=== PATIENT | male | born 1965 | race Caucasian/White ===

== ENCOUNTER 2019-02-08 15:12 | Emergency (ER) | payer OTHER ==
--- NOTE | 2019-02-08 16:09 | ED ---
General Adult HPI - General Stated complaint: L leg swelling Time Seen by Provider: 02/08/19 15:28 Source: patient, EMS, RN notes reviewed Mode of arrival: EMS Limitations: no limitations - History of Present Illness Initial comments: 53-year-old male presents to the emergency department for a chief complaint of left calf pain. Patient states he was using the elliptical history which she has never done before. States that today he started to notice some left calf pain. States it is worse with walking. Denies any back or other leg pain. Denies any leg swelling. Denies any chest pain or shortness of breath. Patient is currently staying at [facility] for IV drug abuse including heroin.Patient has no other complaints at this time including shortness of breath, chest pain, abdominal pain, nausea or vomiting, headache, or visual changes. Review of Systems ROS Statement: Those systems with pertinent positive or pertinent negative responses have been documented in the HPI. ROS Other: All systems not noted in ROS Statement are negative. General Exam General appearance: alert, in no apparent distress Head exam: Present: atraumatic, normocephalic, normal inspection Eye exam: Present: normal appearance, PERRL, EOMI. Absent: scleral icterus, conjunctival injection, periorbital swelling ENT exam: Present: normal exam, mucous membranes moist Neck exam: Present: normal inspection, full ROM. Absent: tenderness, meningismus, lymphadenopathy Respiratory exam: Present: normal lung sounds bilaterally. Absent: respiratory distress, wheezes, rales, rhonchi, stridor Cardiovascular Exam: Present: regular rate, normal rhythm, normal heart sounds. Absent: systolic murmur, diastolic murmur, rubs, gallop, clicks Extremities exam: Present: full ROM (Full range motion of the left lower sternal including ankle knee and hip. No evidence of infection or erythema.), tenderness (Tenderness noted to the left calf and posterior left knee.), normal capillary refill (Capillary refill less than 2 seconds, DP pulse 2+ left lower extremity and equal bilaterally), calf tenderness (patient does have left calf tenderness with a positive Homans sign. No sign of Edema. No ecchymosis. No erythema or increased warmth.), other (Sensation intact in the left lower extremity.). Absent: pedal edema (No edema present of the bilateral lower extremities. No pitting present.), joint swelling (No edema of ankle or knee joint.) Course Vital Signs 02/08/19 16:03 Temperature 98.0 F Pulse Rate 66 Respiratory 16 Rate Blood Pressure 129/72 O2 Sat by Pulse 98 Oximetry Medical Decision Making - Medical Decision Making 53-year-old male resents to the emergency department for a chief complaint of left calf pain times one day. Patient tried the elliptical for the first time yesterday and then started to have left calf pain today. Presents from [facility] for IV drug abuse however no fevers or chills. No back pain. No erythema or edema noted of the lower extremities. Neurovascular status intact in the left lower extremity and equal bilaterally. Ultrasound of the left leg is negative for DVT. Patient likely has a muscle strain of the left calf. At this time patient will be discharged home with Motrin and Tylenol for pain. Disposition Clinical Impression: Strain of calf muscle, Pain of left calf Disposition: HOME SELF-CARE Condition: Good Instructions (If sedation given, give patient instructions): Muscle Strain (ED) Additional Instructions: Please take Motrin and Tylenol for pain. Please follow-up with primary care in 1-2 days. Return here to the emergency department if you have any worsening symptoms or develop any swelling in your legs. Is patient prescribed a controlled substance at d/c from ED?: No Referrals: Wendy Monterroso MD [STAFF PHYSICIAN] - 1-2 days Time of Disposition: 17:04
[2019-02-08 16:13] VITALS: BP 129/72; PULSE 66; RESP 16; TEMP 98
--- NOTE | 2019-02-08 16:36 | US ---
EXAMINATION TYPE: US venous doppler duplex LE LT DATE OF EXAM: 02/08/2019 4:28 PM COMPARISON: NONE CLINICAL HISTORY: Pain. Left calf pain today after working out on elliptical machine yesterday SIDE PERFORMED: Left TECHNIQUE: The lower extremity deep venous system is examined utilizing real time linear array sonog brown with graded compression, doppler sonography and color-flow sonography. VESSELS IMAGED: Common Femoral Vein Deep Femoral Vein Greater Saphenous Vein * Femoral Vein Popliteal Vein Small Saphenous Vein * Proximal Calf Veins (* superficial vessels) Left Leg: Negative for DVT IMPRESSION: No evidence of deep venous thrombosis in the left leg.
== END 2019-02-08 17:16 | disposition home or self-care (01) ==
LOC: EC 15:12
DX: S86.812A Strain of other muscle(s) and tendon(s) at lower leg level, left leg, initial encounter (principal); X58.XXXA Exposure to other specified factors, initial encounter
CPT/HCPCS: 99284